=== PATIENT | female | born 1995 | race Caucasian/White ===

== ENCOUNTER 2023-01-29 11:23 | Inpatient (IN) | payer BC, SELFPAY ==
[2023-01-29] VITALS (63 sets, daily range): BP systolic 107–136; BP diastolic 64–89; PULSE 73–156; TEMP 36.6; O2SAT 96–100; BMI 29.5
--- NOTE | 2023-01-29 11:23 | OBADM ---
This patient, Xochitl Chin, admitted to the OB room OB Post 112 for observation. Patient/family oriented to hospital policies and general routines including ID bracelet, bed and alarms, visiting hours, pain management, procedures, bathroom and other care routines, personal items, smoking policy, room service/diet, and visiting hours. Patient/Family are encouraged to report perceived risks to care and to ask questions if they do not understand what they are told or what they should do.
--- NOTE | 2023-01-29 12:08 | PC.NURSE ---
Dr Cordoba notified of 32 weeks with contractions q 2-3 minutes, denies bleeding or leaking. Orders received.
[2023-01-29] MEDS: NIFEdipine 10 MG CAPSULE PO ×4 (12:27→19:55)
[2023-01-29] MEDS: LACTATED RINGERS 1,000 ML 999 ML IV CONT (12:27)
[2023-01-29 12:57] LABS: Appearance Urine Cloudy (Clear); Bacteria Urine 2+ /hpf; Bilirubin Urine Negative (Negative); Blood Urine Negative (Negative); Color Urine Yellow (Yellow); Glucose Urine UA Negative (Negative); Ketones Urine 2+ mg/dL (Negative); Leukocyte Esterase Ur Trace LEU/UL (NEGATIVE); Nitrate Urine Negative (Negative); Non Pathogenic Casts 0-2; Protein Urine Negative (Negative); RBC Urine 0-2 /hpf (0-2); Specific Grav Ur 1.012 (1.001-1.035); Squamous Epithelial Cell Urine Few /hpf (Few); Urobilinogen Urine 0.2 mg/dL (<2.0); pH Urine 6.5 (5.0-9.0)
[2023-01-29 13:02] LABS: Add Urine Microscopic? YES
[2023-01-29 13:30] LABS: Fetal Fibronectin Positive
--- NOTE | 2023-01-29 13:34 | PC.NURSE ---
Dr Cordoba notified that patient is still having contractions, SVE of 1cm and Positive FFN. Orders received.
[2023-01-29] MEDS: LACTATED RINGERS 1,000 ML 125 ML IV CONT ×2 (14:09→22:43)
[2023-01-29] MEDS: BETAMETHASONE SOD PHOS/ACETATE 30 MG/5 ML VIAL 12 MG IM (14:09)
--- NOTE | 2023-01-29 19:50 | PC.NURSE ---
Called Dr. Saunders about patient feeling 10 contractins in 1 hour and patient is now anna 1-3 minutes apart the last 30 minutes. Orders for another 10mg of procardia and a dose of terbutaline.
[2023-01-29] MEDS: TERBUTALINE SULFATE 1 MG/ML VIAL 0.25 MG SUB-Q (19:55)
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
[2023-01-30] VITALS (33 sets, daily range): BP systolic 116–129; BP diastolic 64–83; PULSE 70–90; RESP 16–18; TEMP 36.4–36.7; O2SAT 96–100
[2023-01-30] MEDS: NIFEdipine 10 MG CAPSULE PO ×4 (01:57→19:39)
--- NOTE | 2023-01-30 02:00 | PC.NURSE ---
Assessed leg swelling. No worsening noted.
--- NOTE | 2023-01-30 04:14 | PC.NURSE ---
Addendum entered by Dea Jara RN 01/30/23 04:28: No answer. Let jakyage for a return phone call. Original Note: Bilateral leg swelling worsening. Tightness in bilateral thighs and pitting edema in bilateral feet. Called Dr. Saunders to see if he would like fluids stopped or slowed down.
--- NOTE | 2023-01-30 06:15 | PC.NURSE ---
Rerport given to Darcie, RN
--- NOTE | 2023-01-30 07:28 | PM.IMHP ---
H&P: HPI History of Present Illness Date/Time: 01/30/23 07:28 Chief Complaint: twins, contractions Narrative: Xochitl is a 27yo G1 at 32.4 who presented yesterday from [facility] for contractions on NST. On admission she was anna every 2 minutes, was feeling them, and was moderately uncomfortable. has been uncomplicated except by twins. Vertex/vertex. Contractions slowed down significantly after IV fluids and two doses of nifedipine. she is receiving scheduled nifedipine 10mg q 6 hours. Also got terbutaline x1 last night. Got rocephin x1 for UA with presumed UTI, culture pending. Celestone x1 yesterday. Cervix 1cm thick yesterday. Review of Systems Review of Systems: All systems reviewed & are unremarkable except as noted in HPI and below Meds Home Medications and Allergies Allergies Allergy/AdvReac Type Severity Reaction Status Date / Time No Known Allergies Allergy Verified 01/29/23 12:26 Vital Signs Vital Signs - 24 hr 01/29/23 12:00 01/29/23 12:15 01/29/23 12:30 Temperature Pulse Rate 73 78 156 H Blood Pressure 128/85 126/89 136/89 Pulse Oximetry Oxygen Delivery 01/29/23 12:45 01/29/23 13:00 01/29/23 13:16 Temperature Pulse Rate 92 85 82 Blood Pressure 125/78 122/78 107/71 Pulse Oximetry Oxygen Delivery 01/29/23 13:30 01/29/23 14:15 01/29/23 14:16 Temperature Pulse Rate 88 87 80 Blood Pressure 131/85 134/72 134/78 Pulse Oximetry Oxygen Delivery 01/29/23 14:30 01/29/23 14:45 01/29/23 15:00 Temperature Pulse Rate 83 88 95 Blood Pressure 125/74 117/76 122/77 Pulse Oximetry Oxygen Delivery 01/29/23 15:15 01/29/23 18:15 01/29/23 19:55 Temperature Pulse Rate 84 82 79 Blood Pressure 120/85 136/78 136/80 Pulse Oximetry Oxygen Delivery 01/29/23 20:01 01/29/23 20:06 01/29/23 20:11 Temperature Pulse Rate Blood Pressure Pulse Oximetry 96 99 100 Oxygen Delivery 01/29/23 20:16 01/29/23 20:21 01/29/23 20:26 Temperature Pulse Rate Blood Pressure Pulse Oximetry 100 100 100 Oxygen Delivery 01/29/23 20:31 01/29/23 20:36 01/29/23 20:41 Temperature Pulse Rate Blood Pressure Pulse Oximetry 99 100 99 Oxygen Delivery 01/29/23 20:46 01/29/23 20:51 01/29/23 20:56 Temperature Pulse Rate Blood Pressure Pulse Oximetry 99 99 100 Oxygen Delivery 01/29/23 21:01 01/29/23 21:06 01/29/23 21:11 Temperature Pulse Rate Blood Pressure Pulse Oximetry 100 99 100 Oxygen Delivery 01/29/23 21:16 01/29/23 21:21 01/29/23 21:26 Temperature Pulse Rate Blood Pressure Pulse Oximetry 98 99 99 Oxygen Delivery 01/29/23 21:31 01/29/23 21:36 01/29/23 21:41 Temperature Pulse Rate Blood Pressure Pulse Oximetry 98 98 99 Oxygen Delivery 01/29/23 21:46 01/29/23 21:53 01/29/23 21:58 Temperature Pulse Rate Blood Pressure Pulse Oximetry 99 97 100 Oxygen Delivery 01/29/23 22:03 01/29/23 22:08 01/29/23 22:13 Temperature Pulse Rate Blood Pressure Pulse Oximetry 99 100 100 Oxygen Delivery 01/29/23 22:18 01/29/23 22:23 01/29/23 22:28 Temperature Pulse Rate Blood Pressure Pulse Oximetry 100 100 100 Oxygen Delivery 01/29/23 22:33 01/29/23 22:38 01/29/23 22:41 Temperature Pulse Rate 86 Blood Pressure 122/64 Pulse Oximetry 100 100 Oxygen Delivery 01/29/23 22:43 01/29/23 22:48 01/29/23 22:53 Temperature Pulse Rate Blood Pressure Pulse Oximetry 99 100 100 Oxygen Delivery 01/29/23 22:58 01/29/23 23:10 01/29/23 23:15 Temperature Pulse Rate Blood Pressure Pulse Oximetry 99 98 98 Oxygen Delivery 01/29/23 23:20 01/29/23 23:25 01/29/23 23:30 Temperature Pulse Rate Blood Pressure Pulse Oximetry 99 99 98 Oxygen Delivery 01/29/23 23:35 01/29/23 23:40 01/29/23 23:45 Temperature Pulse Rate Blood Pres
--- NOTE | 2023-01-30 07:30 | PC.NURSE ---
Patient rates her contractions a 1/10 on the pain scale. States she just feels abdomen tightening. MD aware of lower extremity pitting edema. Verbal orders given to saline lock IV. Orders to call MD if contraction frequency increases again.
--- NOTE | 2023-01-30 07:39 | PC.NURSE ---
Addendum entered by NATI Garay 01/30/23 12:02: 1200- SCD's placed on bilateral lower extremities. Addendum entered by NATI Garay 01/30/23 10:07: Per Kyle SHEEHAN to saline lock IV at this time. Original Note: MD at bedside and cervical exam was performed. Cervix was unchanged from previous exam. Orders received for PO antibiotics and procardia an hour early. also reviewed tracing as well. Continuous TOCO ongoing at this time.
[2023-01-30] MEDS: NITROFURANTOIN MONOHYD MACROCR 100 MG CAP PO ×2 (07:48→20:51)
[2023-01-30] MEDS: BETAMETHASONE SOD PHOS/ACETATE 30 MG/5 ML VIAL 12 MG IM (14:17)
--- NOTE | 2023-01-30 17:28 | PC.NURSE ---
Spoke with MD via telephone at 1512. Orders placed to discontinue continuous tocometer. Canones to be placed with NSTs Q8hr. Place toco if patient complains of contractions. Continue procardia with anticipatory discharge in AM. Patient agrees with plan of care and has no questions at this time.
--- NOTE | 2023-01-30 18:15 | PC.NURSE ---
Pt in room. No needs at this time. Ddenies contractions.
--- NOTE | 2023-01-30 19:44 | PC.NURSE ---
Pt denies contractions currently. Will report if she has any. Pt has no complaints.
[2023-01-31] VITALS (18 sets, daily range): BP systolic 112–115; BP diastolic 67–71; PULSE 70–90; RESP 16–20; TEMP 36.8; O2SAT 84–100
[2023-01-31] MEDS: NIFEdipine 10 MG CAPSULE PO ×2 (01:40→08:26)
--- NOTE | 2023-01-31 05:46 | PC.NURSE ---
Pt reports she is not feeling any contractions.
--- NOTE | 2023-01-31 06:00 | PC.NURSE ---
Report given to ANGELITA Bonner
--- NOTE | 2023-01-31 07:37 | PM.OBPNLAB ---
Pain Control Date/time seen: 01/31/23 07:37 Comments: Doing very well. Contractions stopped. Great FM. Contractions Monitor mode: None Status status: Category l Comments: x2 Assessment and Plan Comments: HOme today with macrobid to finish course procardia prn contractions precautions given s/p celestone
--- NOTE | 2023-01-31 07:40 | PM.DS ---
DS: Admitting Diagnosis Discharge Date 01/31/23 Admitting Diagnosis twin IUP 32.3, contractions DS: Discharge Diagnosis Discharge Diagnosis (1) uterine contractions in third trimester, antepartum: Code(s): O47.03 - False labor before 37 completed weeks of gestation, third trimester Status: Acute (2) Monochorionic diamniotic twin gestation: Code(s): O30.039 - Twin , monochorionic/diamniotic, unspecified trimester Status: Acute DS: Summary Hospital Course Hospital Course: Xochitl was admitted for contractions at 32+ weeks with monochorionic diamniotic twins. She had a positive FFN but did not make cervical change from 1cm and thick. Her contractions were symptomatically treated with procardia and terbutaline and stopped within 24 hours. She received celestone for lung maturity. After contractions resolved she was discharged home on macrobid for UTI and procardia prn. Status at Discharge Functional status at discharge: independent ambulation Overall status at discharge: patient is back to baseline Time Spent with Patient Time attestation: Total time spent providing and/or coordinating discharge services: Time spent: Less than 30 minutes Exam Narrative: NAD abdomen soft, appropriately tender Ext non tender, 1+ edema Discharge Plan Discharge Attending physician on discharge: Nicole Cordoba Discharging Clinician: Nicole Cordoba Anticipated Discharge Date/Time: 01/31/23 07:39 Patient Disposition: Home, Self-Care Activity: pelvic rest Diet: regular Patient Instructions: Antibiotic Form Stand Alone Forms: General Discharge Information Follow-up/Referrals: Nicole Cordoba MD [Physician] - Other (Sunday- cancel today) Discharge Medications: New nifedipine 10 mg Capsule 10 mg PO Q6HR PRN (Reason: contractions) Qty: 30 0RF nitrofurantoin monohyd/m-cryst [Macrobid] 100 mg Capsule 100 mg PO Q12HR Qty: 12 0RF Date of admission: 01/30/23 15:41 Primary Care Provider: UNKNOWN,DOCTOR Admitting Provider: Nicole Cordoba Attending physician on admission: Nicole Cordoba Condition: Stable
[2023-01-31] MEDS: NITROFURANTOIN MONOHYD MACROCR 100 MG CAP PO (08:30)
== END 2023-01-31 09:48 | disposition home or self-care (01) | DRG 832 ==
PROVIDERS: Admitting Provider Obstetrics & Gynecology; Visit Provider Obstetrics & Gynecology
DX: O60.03 Preterm labor without delivery, third trimester (principal); N39.0 Urinary tract infection, site not specified; O23.43 Unspecified infection of urinary tract in pregnancy, third trimester; O30.033 Twin pregnancy, monochorionic/diamniotic, third trimester; Z3A.32 32 weeks gestation of pregnancy
CPT/HCPCS: 59025; 81001; 82731; 87086; A9270; J0131; J0696; J0702; J3105; J7120

== ENCOUNTER 2023-02-07 11:10 | Outpatient (CLI) | payer BC, SELFPAY ==
--- NOTE | 2023-02-07 12:10 | PC.NURSE ---
Santino Stephen notified ROM plus negative. SVE preformed pt fingertip. Discharge order obtained.
[2023-02-07 12:12] VITALS: BP 137/92; PULSE 80
== END 2023-02-07 12:15 | disposition home or self-care (01) ==
LOC: ANHOBOP 12:09 → ANHLDR 12:10
PROVIDERS: Visit Provider Obstetrics & Gynecology
DX: O42.90 Premature rupture of membranes, unspecified as to length of time between rupture and onset of labor, unspecified weeks of gestation (principal)
CPT/HCPCS: 59025; 84112; 99199

== ENCOUNTER 2023-02-25 17:52 | Inpatient (IN) | payer BC, SELFPAY ==
[2023-02-25] VITALS (22 sets, daily range): BP systolic 124–163; BP diastolic 87–105; PULSE 57–78; RESP 15–17; TEMP 36.7–37; BMI 31.2
--- NOTE | 2023-02-25 17:52 | LDADM ---
This patient, Xochitl Chin, was admitted to Labor/Delivery/Recovery 102 on 02/25/23 at 17:52. Plans for labor, pain management and were discussed with patient. Patient/family oriented to hospital policies and general routines including ID bracelet, bed and alarms, visiting hours, pain management, procedures, bathroom and other care routines, personal items, smoking policy, room service/diet and guest tray routines, security routines, and visiting hours. Patient/Family are encouraged to report perceived risks to care and to ask questions if they do not understand what they are told or what they should do. See OBIX for further documentation.
[2023-02-25 18:47] LABS: Basophils Percent Auto 0.4 % (0.2-1.2); Eosinophils Percent Auto 0.4 % (0-4.4); Hemoglobin 10.1 g/dL (12.0-15.0); Immature Granulocyte Absolute 0.04 K/mm3 (0.00-0.031); Immature Granulocyte Percent A 0.5 % (0-0.5); Lymphocytes Absolute Auto 1.79 K/mm3 (0.9-3.2); Lymphocytes Percent Auto 23.3 % (18.3-44.2); Mean Corpuscular HGB Conc 32.6 g/dl (32-36); Mean Corpuscular Hemoglobin 26.5 pg (26-34); Mean Corpuscular Volume 81.4 fl (80-100); Mean Platelet Volume 11.8 fl (7.4-10.4); Monocytes Absolute Auto 0.3 K/mm3 (0.1-0.6); Monocytes Percent Auto 4.3 % (2.6-8.5); Neutrophils Absolute Auto 5.5 K/mm3 (1.3-6.7); Neutrophils Percent Auto 71.1 % (45.5-73.1); Platelet Count Result 252 k/mm3 (150-375); Red Blood Count 3.81 M/mm3 (4.2-5.4); White Blood Count 7.7 K/mm3 (4.5-10.0)
[2023-02-25 20:03] LABS: Alanine Aminotransferase 28 U/L (6-35); Albumin Level 3.2 g/dL (3.5-5.1); Alkaline Phosphatase 245 U/L (38-126); Anion Gap 7 mmol/L (8-16); Aspartate Amino Transferase 37 U/L (14-36); Bilirubin,Total 0.5 mg/dL (0.2-1.3); Blood Urea Nitrogen 15 mg/dL (7-17); Calcium 8.4 mg/dL (8.4-10.2); Carbon Dioxide 19 mmol/L (22-30); Chloride 102 mmol/L (98-107); Estimated CRCL calculation 76 ml/min; Estimated Glomerular Filt Rate > 60; Glucose 72 mg/dL (65-110); Potassium 3.8 mmol/L (3.4-5.0); Sodium 128 mmol/L (137-145); Uric Acid 8.8 mg/dL (2.5-7.5)
[2023-02-25 21:01] LABS: Appearance Urine Clear (Clear); Bacteria Urine None Seen /hpf; Bilirubin Urine Negative (Negative); Blood Urine Trace (Negative); Color Urine Yellow (Yellow); Glucose Urine UA Negative (Negative); Ketones Urine 2+ mg/dL (Negative); Leukocyte Esterase Ur Trace LEU/UL (Negative); Nitrate Urine Negative (Negative); Protein Urine Trace mg/dL (Negative); RBC Urine 0-2 /hpf (0-2); Specific Grav Ur 1.021 (1.001-1.035); Squamous Epithelial Cell Urine Occasional /hpf (Few)
[2023-02-25 21:05] LABS: Creatinine Urine 216.5 mg/dL; Total Protein Urine Random 7 mg/dL; Ur Ttl Prot Creatinine Ratio 0.03 mg/mg (0-0.20)
[2023-02-25 21:10] LABS: Add Urine Microscopic? YES
[2023-02-25] MEDS: OXYTOCIN 30 UNITS/NS 500 ML 30 UNITS/500 ML BAG IV CONT (22:07)
[2023-02-25] MEDS: LACTATED RINGERS 1,000 ML 125 ML IV CONT (22:07)
[2023-02-25] MEDS: ONDANSETRON INJ 4 MG/2 ML VIAL IV PUSH (22:35)
[2023-02-26] VITALS (217 sets, daily range): BP systolic 99–153; BP diastolic 60–118; PULSE 25–134; RESP 16–17; TEMP 36.3–37.3; O2SAT 82–100
[2023-02-26] MEDS: fentaNYL CITRATE INJ (*CRX) 100 MCG/2 ML VIAL 50 MCG IV PUSH (04:45)
[2023-02-26] MEDS: LACTATED RINGERS 1,000 ML 125 ML IV CONT ×2 (06:17→09:06)
[2023-02-26] MEDS: fentaNYL CITRATE INJ (*CRX) 100 MCG/2 ML VIAL IV PUSH (06:18)
--- NOTE | 2023-02-26 06:37 | WPDANESEPP ---
Anes - Eval Pre Procedure Procedure: labor epidural Date/Time: 02/26/23 06:37 Surgeon: mickey Preop Diagnosis: pain during labor Pre Op Diagnosis: iol twins Patient Data Age: 27 Gender: F Height: 1.55 m Weight: 75 kg Last Vital Signs Temp 36.6 C 02/26/23 05:35 Pulse 61 02/26/23 06:30 Resp 17 02/26/23 05:35 BP 137/84 02/26/23 06:30 O2 Del Method Room Air 02/25/23 18:29 Allergies Allergy/AdvReac Type Severity Reaction Status Date / Time No Known Allergies Allergy Verified 01/29/23 12:26 Home Medications Medication Instructions Recorded Confirmed Type ferrous sulfate 142 mg (45 mg 45 mg PO DAILY 02/25/23 02/25/23 History iron) tablet,extended release (Slow Fe) prenat.vits,spike,yxz-aohs-ondbl 1 tablet PO DAILY 02/25/23 02/25/23 History Laboratory Tests 02/25/23 02/25/23 18:39 19:39 WBC 7.7 K/mm3 (4.5-10.0) RBC 3.81 L M/mm3 (4.2-5.4) Hgb 10.1 L g/dL (12.0-15.0) Hct 31.0 L % (37.0-47.0) MCV 81.4 fl (80-100) MCH 26.5 pg (26-34) MCHC 32.6 g/dl (32-36) RDW 20.0 H % (11.5-14.5) Plt Count 252 k/mm3 (150-375) MPV 11.8 H fl (7.4-10.4) Immature Gran % (Auto) 0.5 % (0-0.5) Neut % (Auto) 71.1 % (45.5-73.1) Lymph % (Auto) 23.3 % (18.3-44.2) Lipscomb % (Auto) 4.3 % (2.6-8.5) Eos % (Auto) 0.4 % (0-4.4) Baso % (Auto) 0.4 % (0.2-1.2) Lymph # (Auto) 1.79 K/mm3 (0.9-3.2) Lipscomb # (Auto) 0.3 K/mm3 (0.1-0.6) Eos # (Auto) 0.0 K/mm3 (0-0.3) Baso # (Auto) 0.0 K/mm3 (0.0-0.1) Abs Immat Gran (auto) 0.04 H K/mm3 (0.00-0.031) Absolute Neuts (auto) 5.5 K/mm3 (1.3-6.7) Absolute Nucleated RBC 0.0 K/mm3 (0.0-0.012) Nucleated RBC % 0.0 % (0.0-0.2) Sodium 128 L mmol/L (137-145) Potassium 3.8 mmol/L (3.4-5.0) Chloride 102 mmol/L (98-107) Carbon Dioxide 19 L mmol/L (22-30) Anion Gap 7 L mmol/L (8-16) BUN 15 mg/dL (7-17) Creatinine 0.90 mg/dL (0.7-1.0) Estim Creat Clear Calc 76 ml/min Estimated GFR > 60 (59 - ) Glucose 72 mg/dL (65-110) Uric Acid 8.8 H mg/dL (2.5-7.5) Calcium 8.4 mg/dL (8.4-10.2) Total Bilirubin 0.5 mg/dL (0.2-1.3) AST 37 H U/L (14-36) ALT 28 U/L (6-35) Alkaline Phosphatase 245 H U/L (38-126) Total Protein 6.0 L g/dL (6.3-8.2) Albumin 3.2 L g/dL (3.5-5.1) Urine Color Yellow (Yellow) Urine Appearance Clear (Clear) Urine pH 6.0 (5.0-9.0) Ur Specific [place] 1.021 (1.001-1.035) Urine Protein Trace mg/dL (Negative) Urine Glucose (UA) Negative mg/dL (Negative) Urine Ketones 2+ H mg/dL (Negative) Ur Blood (Man) Trace (Negative) Urine Nitrate Negative (Negative) Urine Bilirubin Negative (Negative) Urine Urobilinogen 1.0 mg/dL (<2.0) Leukocyte Esterase Rfl Trace H MILAN/UL (Negative) Urine RBC 0-2 /hpf (0-2) Urine WBC 6-10 H /hpf Ur Squamous Epith Cells Occasional /hpf (Few) Urine Bacteria None seen /hpf Urine Casts 3-5 U Random Total Protein 7 mg/dL Urine Creatinine 216.5 mg/dL Protein/Creat Ratio 2 0.03 mg/mg (0-0.20) RPR Pending Blood Type O Positive Antibody Screen Negative Patient hx anesthesia problems: none Family hx anesthesia problems: none Results Review: All pre-operative results and documents have been reviewed as part of the pre-operative evaluation. [facility] Social History Social History Smoking status: Former smoker Substance use: never Lack of Transportation: No Lack of Food: Never True Current Housing: I Have Housing Concerned About Future Housing: No Difficulty Paying Gas/Electric Bill
--- NOTE | 2023-02-26 07:35 | WPDANESEPN ---
Anes - Epidural Procedure Note Date/Time: 02/26/23 07:35 Consent: I have discussed with the patient/family/POA, the placement of an epidural catheter and the use of epidural narcotic/local anesthetic for labor analgesia and/or postoperative pain management, including associated potential risks, benefits, complications and side effects. I have discussed alternative methods of labor analgesia and/or postoperative pain management. The patient/family/POA, understand(s) and wish(es) to proceed with epidural narcotic/local anesthetic for labor analgesia and/or postoperative pain management. Time-Out: A pre-procedural Time-Out was completed immediately before starting the procedure and confirmed: Patient Identification, Site, Procedure, Patient Position and the Availability of Requisite Equipment. Clinical Indications: Painn during labor Epidural Insertion Note Patient position: sitting Skin prep: chlorhexidine and sterile drape Needle: 18g Tuohy-Schliff Catheter: 20g Unstyleted Technique: Loss of resistance. Level of insertion: L4/5 Catheter skin keyona (cm): 10 Length in epidural space (cm): 5 Skin anesthesia: lidocaine 1% Test dose: 1.5% Lidocaine with 1:[id number] Epi, negative for subarachnoid Inj and negative for intravascular Inj Time of test dose: 07:25 Observations: tolerated well Complications: none
--- NOTE | 2023-02-26 08:01 | PM.IMHP ---
H&P: HPI History of Present Illness Date/Time: 02/26/23 08:01 Chief Complaint: twins, IOL Narrative: Xochitl is a 27yo G1 at 36.3 for IOL mono/di twins, recommended delivery 36-37w per MFM. Last US bab A 5-9 vertex, baby B 5-12 breech, 3% discordance. Pt desires attempt at vaginal delivery. otherwise uncomplcated. Baby B has marginal cord insertion. When she presented to L and D she had mildly elevated pressures, uric acid elevated, normal PC ratio. PMFSH Social History Social History Smoking status: Former smoker Substance use: never Lack of Transportation: No Lack of Food: Never True Current Housing: I Have Housing Concerned About Future Housing: No Difficulty Paying Gas/Electric Bills: No Difficulty Paying for Meds: No Currently Unemployed: No Education: Bachelor's Degree Difficulty w/ Childcare or Family Care: No Spiritual care concerns: No Meds Home Medications and Allergies Home Medications Medication Instructions Recorded Confirmed Type ferrous sulfate 142 mg (45 mg 45 mg PO DAILY 02/25/23 02/25/23 History iron) tablet,extended release (Slow Fe) prenat.vits,spike,bge-lqbb-tapqc 1 tablet PO DAILY 02/25/23 02/25/23 History Allergies Allergy/AdvReac Type Severity Reaction Status Date / Time No Known Allergies Allergy Verified 01/29/23 12:26 Vital Signs Vital Signs - 24 hr 02/25/23 18:29 02/25/23 18:53 02/25/23 18:58 Temperature Pulse Rate 76 78 Respiratory Rate Blood Pressure 143/89 H 134/90 Pulse Oximetry Oxygen Delivery Room Air 02/25/23 19:01 02/25/23 19:17 02/25/23 19:30 Temperature Pulse Rate 69 66 74 Respiratory Rate Blood Pressure 134/89 142/95 H 150/98 H Pulse Oximetry Oxygen Delivery 02/25/23 20:00 02/25/23 20:15 02/25/23 20:30 Temperature Pulse Rate 68 77 74 Respiratory Rate Blood Pressure 150/95 H 140/96 H 138/91 H Pulse Oximetry Oxygen Delivery 02/25/23 20:50 02/25/23 21:00 02/25/23 21:15 Temperature 98.6 F Pulse Rate 77 71 74 Respiratory Rate 17 Blood Pressure 129/93 H 139/91 H 140/88 Pulse Oximetry Oxygen Delivery 02/25/23 19:15 02/25/23 18:25 02/25/23 21:30 Temperature 98.3 F 98.1 F Pulse Rate 67 Respiratory Rate 16 15 Blood Pressure 124/95 H Pulse Oximetry Oxygen Delivery 02/25/23 21:45 02/25/23 22:00 02/25/23 22:15 Temperature 98.3 F Pulse Rate 74 69 63 Respiratory Rate 15 Blood Pressure 141/105 H 153/94 H 142/93 H Pulse Oximetry Oxygen Delivery 02/25/23 22:30 02/25/23 22:45 02/25/23 23:15 Temperature Pulse Rate 57 L 61 61 Respiratory Rate Blood Pressure 163/91 H 149/95 H 143/97 H Pulse Oximetry Oxygen Delivery 02/25/23 23:30 02/25/23 23:45 02/26/23 00:00 Temperature Pulse Rate 64 65 72 Respiratory Rate 17 Blood Pressure 155/87 H 156/95 H 145/95 H Pulse Oximetry Oxygen Delivery 02/26/23 00:15 02/26/23 00:30 02/26/23 00:45 Temperature 98.3 F Pulse Rate 62 60 57 L Respiratory Rate 16 Blood Pressure 146/87 H 145/75 H 120/68 Pulse Oximetry Oxygen Delivery 02/26/23 01:00 02/26/23 01:15 02/26/23 01:30 Temperature Pulse Rate 62 57 L 55 L Respiratory Rate Blood Pressure 134/76 124/71 126/74 Pulse Oximetry Oxygen Delivery 02/26/23 01:45 02/26/23 03:05 02/26/23 03:00 Temperature 98.2 F Pulse Rate 55 L 55 L Respiratory Rate 16 Blood Pressure 132/75 131/74 Pulse Oximetry Oxygen Delivery 02/26/23 03:15 02/26/23 03:30 02/26/23 03:45 Temperature Pulse Rate 56 L 56 L 56 L Respiratory Rate Blood Pressure 129/75 135/71 129/72 Pulse Oximetry Oxygen Delivery 02/26/23 04:00 02/26/23 04:15 02/26/23 04:30 Temperature Pulse Rate 57 L 56 L 56 L Respiratory Rate Blood Pressure 149/83 H 142/90 H 137/87 Pulse Oximetry Oxygen Delivery 02/26/23 04:45 02/26/23 05:00 02/26/23 05:15 Temperature Puls
[2023-02-26 08:43] LABS: Rapid Plasma Reagin Non-Reactive (NonReactive)
[2023-02-26] MEDS: FAMOTIDINE 20 MG/2 ML VIAL IV PUSH (15:24)
--- NOTE | 2023-02-26 17:08 | PM.OBPRVD ---
OB - Delivery Note Procedure Delivery date: 02/26/23 Procedure: of Twin A and vaginal breech extraction of second Twin B Events: Multiple Gestation Induction method: AROM and Per Pitocin Protocol Delivery monitor: External FHT and Internal Uterine Route of delivery: Laceration Description: Perineal - 2nd Degree Delivery repair: vicryl Specimen: Yes Quantitative Blood Loss (ml): 520 Anesthesia type: Epidural Disposition: Floor Narrative: With adequate expulsive efforts by the mother, Baby A's head was delivered OA. The baby's anterior shoulder was delivered under the pubic symphysis without difficulty. The posterior shoulder and the rest of the baby delivered without difficulty. The infant was placed on the mothers chest and suctioned and stimulated. The cord was clamped and cut after 30 seconds. Ultrasound was done and confirmed baby B remained in breech position. Without rupturing membranes, both feet were grasped and pulled down toward the vagina. AROM was performed, clear fluid. The baby was delivered footling breech in normal fashion without difficulty. The cord was clamped and cut immediately and handed to nursery staff. Mother and babies all stable. [place] Baby Date of : 02/26/23 Time of : 16:30 Weeks of gestation at delivery: 36 gender: Male Weight (pounds): 5 Weight (ounces): 11 presentation: vertex Placenta delivery description: Spontaneous Cord Vessel Description: 3 Vessels and Delayed Cord Clamping Narrative: apgars pending per nursery Twins 2: Date of : 02/26/23 Time of : 16:34 Weeks of gestation at delivery: 36 Infant gender: Male Weight (pounds): 5 Weight (ounces): 12 presentation: breech Placental delivery description: Spontaneous Cord Vessel Description: 3 Vessels and Clamped/Cut Narrative: apgars pending per nursery
[2023-02-26] MEDS: OXYTOCIN 30 UNITS/NS 500 ML 30 UNITS/500 ML BAG 125 UNITS IV CONT (17:22)
[2023-02-26] MEDS: IBUPROFEN 600 MG TABLET PO (17:30)
--- NOTE | 2023-02-26 17:50 | PC.NURSE ---
tracings from 1540-deliveries are physical copies in chart and are documented in OBIX.
--- NOTE | 2023-02-26 17:52 | PC.NURSE ---
Patient back in L&D room at 1702.
[2023-02-26] MEDS: ACETAMINOPHEN 325 MG TABLET 650 MG PO (20:35)
--- NOTE | 2023-02-26 23:07 | OBPPTRN ---
Patient transferred to post room #277 via wheelchair. Support person present. Oriented to unit, room, information board, rooming in, admission packet and security measures. Patient verbalizes understanding. Infants in level II nursery.
[2023-02-27 04:35] VITALS: BP 125/85; PULSE 77; RESP 16; TEMP 36.4; O2SAT 98
[2023-02-27] MEDS: IBUPROFEN 600 MG TABLET PO ×2 (04:39→12:41)
[2023-02-27 05:19] LABS: Hematocrit 25.9 % (37.0-47.0); Hemoglobin 8.3 g/dL (12.0-15.0)
--- NOTE | 2023-02-27 07:28 | P.PNOB_ITS ---
OB - PN: Subj Subjective Date/time seen: 02/27/23 07:28 Patient comments: no complaints and pain well controlled baby status: doing well [place] feeding status: breast and bottle feeding Narrative: Babies up from level 2 overnight. Not latching great, pumping and formula feeding. OB - PN: Obj Data Labs 02/27/23 04:38 02/25/23 19:39 Labs: Laboratory Results - last 24 hr 02/25/23 02/27/23 18:39 04:38 Hgb 8.3 L Hct 25.9 L RPR Non-reactive OB - PN A/P Assessment and Plan (1) Twin delivered vaginally: Code(s): O30.009 - Twin , unspecified number of placenta and unspecified number of amniotic sacs, unspecified trimester Status: Acute (2) Anemia due to blood loss, acute: Code(s): D62 - Acute posthemorrhagic anemia Status: Acute Plan day: 1 Plan: routine care Comments: plan circumcisions tomorrow IV iron today doing well Time Spent With Patient Time: Total time spent is greater than 50% in coordination of care (as documented) at patient's floor/unit and/or counseling patient: Time with patient: less than 15 minutes Exam Narrative: NAD abdomen soft, nontender, fundus firm below the umbilicus Extremities nontender, 1+ edema
[2023-02-27] MEDS: ACETAMINOPHEN 325 MG TABLET 650 MG PO (07:35)
[2023-02-27] MEDS: MULTIVIT/MIN/PREN/FOL AC/IRON TABLET 1 TAB PO (07:35)
[2023-02-27] MEDS: POLYSACCHARIDE IRON COMPLEX 150 MG CAPSULE PO ×2 (07:35→18:43)
[2023-02-27 08:00] VITALS: BP 133/89; PULSE 56; RESP 18; TEMP 36.6; O2SAT 98
[2023-02-27 12:00] VITALS: BP 135/88; PULSE 76; RESP 18; TEMP 36.6; O2SAT 99
--- NOTE | 2023-02-27 15:22 | PC.NURSE ---
[id number] Introductions were made, then consulted with patient to assess needs related to . Mother led the conversation with her?plans to feed?her infants and the?experience so far. Mother states they both breastfed great downstairs and she has used her personal portable pump once. Resources provided for inpatient and outpatient services with the feeding sheet, mom/baby guide and name written on the white board. Mother voiced understanding of information and requested assistance when it is time to feed. Encouraged [id number] and massage touch to encourage infants to wake for soon since it has been over 2 hours. Parents demonstrate eagerness to learn. [id number] Parents work well with their infants with encouragement and education. Encouraged understanding of the benefits of skin to skin (parents are demonstrating unwrapping infants, upright on their chests), stimulating with massage touch, changing positions to encourage wakefulness, how to watch for early feeding cues, responsive feeding, feeding on demand (aiming for 8-12 times in 24 hours, about every 2-3 hours), milk production, building/maintaining a milk supply, duration of feeding, signs of adequate intake/output and how to record on the feeding sheet. Blood sugar was resulted at 65mg/ml. Reviewed positioning and ear, shoulder, hip alignment, supporting the breast to facilitate a deep latch, asymmetrical latch (off-center), leading with the chin with a big, open, wide gape and body close to mother with baby B Les. latched optimally to the right breast in football position for 10 minutes of effective . Education given to mother of how to visualize suck/swallow ratios and listen for drinking at the breast. was able to maintain latch without discomfort to mother. Nipple care reviewed with optimal latch and good positioning. was passed to father of baby to supplement with formula. Reviewed the risks and benefits of , pumping, supplementing and discussed expected pees, poops, weight loss, blood sugar results, and jaundice levels being assessed. Father of baby supplements infant B with formula. Mother spends [id number] time with A. After stimulating infant demonstrated feeding cues, then latched effectively to the left breast for 15 minutes, then more upright S2S. demonstrated feeding cues and mother effectively latched to the right breast using the football positioning for 5 minutes of effective . Reviewed good handwashing when or touching the breast/nipples to prevent infection. Breast pump provided due to stimulating the breast if infants do not latch. Instructions given on cleaning, care, usage, that there should be no pain, pumping schedule for milk production, collection, and storage of human milk. Parents are encouraged to record pumping schedule on the feeding sheet. Patient was assessed for correct placement, flange size, to pump for comfort and nipple stretching/stimulation for adequate milk production every 3 hours (8 times in 24 hours) 1-2 times at night. Parents voiced understanding of skin to skin, stimulating with massage touch, responsive feedings, hand expressed colostrum, talking to infant to encourage if it has been 2 -2.5 hours since the start of the last , to call if infant does not latch, or if there is discomfort with . Resources provided for inpatient/outpatient with the feeding sheet and the mom/baby guide. Parents voiced understanding of information, demonstrated learning and will call if there is a request for assistance. Reported to primary RN.
[2023-02-27 19:56] VITALS: BP 132/85; PULSE 92; RESP 16; O2SAT 100
[2023-02-28 04:40] VITALS: BP 134/85; PULSE 79
[2023-02-28] MEDS: IBUPROFEN 600 MG TABLET PO ×2 (04:53→18:04)
--- NOTE | 2023-02-28 07:32 | PM.OBPNVD ---
OB - PN: Subj Subjective Date/time seen: 02/28/23 07:32 Patient comments: no complaints baby status: doing well [place] feeding status: breast and bottle feeding OB - PN: Obj Data Labs 02/27/23 04:38 02/25/23 19:39 OB - PN A/P Assessment and Plan (1) Twin delivered vaginally: Code(s): O30.009 - Twin , unspecified number of placenta and unspecified number of amniotic sacs, unspecified trimester Status: Acute Plan day: 2 Plan: routine care and discharge home Comments: to stay as no care bed Time Spent With Patient Time: Total time spent is greater than 50% in coordination of care (as documented) at patient's floor/unit and/or counseling patient: Time with patient: less than 15 minutes Exam Narrative: NAD abdomen soft, nontender, fundus firm below the umbilicus Extremities nontender, 1+ edema
--- NOTE | 2023-02-28 07:33 | P.DS_ITS ---
DS: Admitting Diagnosis Discharge Date 02/28/23 Admitting Diagnosis twin IUP at 36.3 DS: Discharge Diagnosis Discharge Diagnosis (1) Anemia due to blood loss, acute: Code(s): D62 - Acute posthemorrhagic anemia Status: Acute (2) Twin delivered vaginally: Code(s): O30.009 - Twin , unspecified number of placenta and unspecified number of amniotic sacs, unspecified trimester Status: Acute OB - DS: Summary Hospital Course Hospital Course: Xochitl was admitted for IOL mono/di twins at 36.3 per [facility] recs. She proceeded to have a vaginal delivery of vertex/breech twins. Her course was uncomplicated except by anemia, for which she received IV iron. She was discharged home on PPD 2. OB Procedures : NST and Ultrasound OB Procedures Intrapartum: Spontaneous Vag Delivery OB Procedures: : None Peripartum Data Infant Delivery Method: Natural Vaginal Laceration Description: Perineal - 2nd Degree complications: none Status at Discharge Functional status at discharge: independent ambulation Time Spent with Patient Time attestation: Total time spent providing and/or coordinating discharge services: Exam Narrative: NAD abdomen soft, appropriately tender Ext non tender, 1+ edema DS: Data Data Completed and Pending Pending studies at discharge: Pending at discharge 02/26/23 18:06 Surgical [PTH] Routine Discharge Plan Discharge Attending physician on discharge: Nicole Cordoba Discharging Clinician: Nicole Cordoba Anticipated Discharge Date/Time: 02/28/23 07:33 Patient Disposition: Home, Self-Care Activity: pelvic rest Diet: regular Patient Instructions: Antibiotic Form Stand Alone Forms: General Discharge Information Follow-up/Referrals: Nicole Cordoba MD [Physician] - 4 Weeks Discharge Medications: Continued Vitamin Tablet 1 tablet PO DAILY Slow Fe 142 mg (45 mg iron) Tablet Extended Release 45 mg PO DAILY Date of admission: 02/25/23 17:52 Primary Care Provider: PHYSICIAN,COMPUTER[employer]ED MACHINE [employer] Admitting Provider: Nicole Cordoba Attending physician on admission: Nicole Cordoba Condition: Stable
[2023-02-28] MEDS: MULTIVIT/MIN/PREN/FOL AC/IRON TABLET 1 TAB PO (09:36)
[2023-02-28] MEDS: POLYSACCHARIDE IRON COMPLEX 150 MG CAPSULE PO ×2 (09:36→18:02)
[2023-02-28] MEDS: DOCUSATE SODIUM 100 MG CAPSULE PO ×2 (09:36→18:03)
[2023-02-28 10:00] VITALS: BP 133/84; PULSE 93; RESP 16; TEMP 37.2; O2SAT 99
--- NOTE | 2023-02-28 10:41 | PC.NURSE ---
0830 - Purposefully rounded. Mother states she is combination feeding with and formula. services provided. Mother voiced understanding of when, how, and why to call for assistance with . Reviewed protecting her milk supply and self-care.
[2023-02-28] MEDS: ACETAMINOPHEN 325 MG TABLET 650 MG PO (18:03)
[2023-02-28] MEDS: TETANUS,DIPHTHERIA,AC PERTUSSIS ADULT (0.5 ML) BOOSTRIX IM (19:11)
== END 2023-02-28 19:30 | disposition home or self-care (01) | DRG 807 ==
LOC: ANHLDR 23:55 → ANHOB2 02-26 20:03
PROVIDERS: Admitting Provider Obstetrics & Gynecology; Visit Provider Obstetrics & Gynecology
DX: O13.4 Gestational [pregnancy-induced] hypertension without significant proteinuria, complicating childbirth (principal); Z37.2 Twins, both liveborn; O69.89X2 Labor and delivery complicated by other cord complications, fetus 2; O32.1XX2 Maternal care for breech presentation, fetus 2; O70.1 Second degree perineal laceration during delivery; O99.02 Anemia complicating childbirth; D64.89 Other specified anemias; O14.04 Mild to moderate pre-eclampsia, complicating childbirth; O30.033 Twin pregnancy, monochorionic/diamniotic, third trimester; Z3A.36 36 weeks gestation of pregnancy; Z87.891 Personal history of nicotine dependence
CPT/HCPCS: 36415; 80053; 81001; 82570; 84156; 84550; 85014; 85018; 85025; 86592; 86850; 86900; 86901; 87086; 88307; 90715; A9270; J1756; J2405; J2590; J2795; J3010; J7120